=== PATIENT | female | born 2000 | race Caucasian/White ===

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

== ENCOUNTER 2020-01-04 21:25 | Observation (INO) | payer OTHER ==
[~2020-01-04] VITALS: Ht 160 cm; Wt 62.6 kg
[2020-01-04 22:44] VITALS: BP 117/56
[2020-01-05 00:02] LABS: APPEARANCE,URINE CLEAR (CLEAR); BILIRUBIN,URINE NEGATIVE (NEGATIVE); BLOOD, URINE NEGATIVE (NEGATIVE); COLOR,URINE YELLOW (YELLOW); LEUKOCYTE ESTERASE ,URINE NEGATIVE (NEGATIVE); NITRITE, URINE NEGATIVE (NEGATIVE); PH,URINE 6.5 (5.0-9.0); UGLUCOSE NEGATIVE (NEGATIVE)
== END 2020-01-04 23:45 | disposition home or self-care (01) ==
LOC: MLD 21:25
PROVIDERS: ADMIT Obstetrics & Gynecology; ATTEND Obstetrics & Gynecology
DX: O62.9 Abnormality of forces of labor, unspecified (principal); Z3A.38 38 weeks gestation of pregnancy
CPT/HCPCS: 76817; 81003; 87086; G0378; Q0092

== ENCOUNTER 2020-03-10 21:54 | Inpatient (IN) | payer OTHER ==
[~2020-03-10] VITALS: Ht 162.6 cm; Wt 74.8 kg
[2020-03-10] MEDS ORDERED: LACTATED RINGERS 1,000 ML IV SCH (22:17)
[2020-03-10] MEDS ORDERED: PROMETHAZINE 25 MG/ML VIAL IVP PRN (22:20)
[2020-03-10] MEDS ORDERED: fentaNYL citrate 0.05 MG/ML VIAL IVP PRN (22:20)
[2020-03-10] MEDS ORDERED: OXYTOCIN 20 UNITS/LR PREMIX 1,000 ML IV SCH (22:20)
[2020-03-10] MEDS ORDERED: ONDANSETRON 4 MG/2 ML VIAL IVP PRN (22:35)
[2020-03-10] MEDS ORDERED: MORPHINE SULFATE 5 MG/ML VIAL IVP PRN (22:35)
[2020-03-10] MEDS ORDERED: AMPICILLIN 2,000 MG in NACL 0.9% 100 ML IV ONE (22:35)
[2020-03-10] MEDS ORDERED: AMPICILLIN 2,000 MG VIAL ONE (22:42)
[2020-03-10 22:48] LABS: BASOPHILS # (AUTO) 0.1 K/uL (0.00-0.22); BASOPHILS % (AUTO) 0.5 % (0.0-2.0); EOSINOPHILS # (AUTO) 0.1 K/uL (0-0.4); EOSINOPHILS % (AUTO) 0.6 % (0.0-4.0); HEMATOCRIT 36.5 % (36-48); HEMOGLOBIN 12.1 g/dL (12.0-16.0); LYMPHOCYTES # (AUTO) 2.6 K/uL (2.5-16.5); MEAN CORPUSCULAR HEMOGLOBIN 30 pg (27-31); MEAN CORPUSCULAR HGB CONC 33 g/dL (33-37); MEAN CORPUSCULAR VOLUME 88.9 fL (80-94); MONOCYTES # (AUTO) 0.8 K/uL (0.8-1.0); MONOCYTES % (AUTO) 6.2 % (1.7-9.3); NEUTROPHILS # (AUTO) 9.3 K/uL (1.8-7.7); NEUTROPHILS % (AUTO) 72.7 % (42.2-75.2); PLATELET COUNT (AUTO) 253 K/uL (140-450); RED BLOOD CELL COUNT(AUTO) 4.11 MIL/uL (4.20-5.40); WHITE BLOOD COUNT (AUTO) 12.8 K/uL (4.5-11.0)
[2020-03-10 22:50] LABS: APPEARANCE,URINE CLOUDY (CLEAR); BILIRUBIN,URINE NEGATIVE (NEGATIVE); BLOOD, URINE NEGATIVE (NEGATIVE); COLOR,URINE YELLOW (YELLOW); LEUKOCYTE ESTERASE ,URINE NEGATIVE (NEGATIVE); NITRITE, URINE NEGATIVE (NEGATIVE); UGLUCOSE NEGATIVE (NEGATIVE)
[2020-03-10 23:13] LABS: ALBUMIN 2.7 g/dL (3.4-5.0); CARBON DIOXIDE 20.5 mmol/L (21-32); CREATININE 0.9 mg/dL (0.6-1.3); POTASSIUM 3.5 mmol/L (3.5-5.1); TOTAL BILIRUBIN 0.2 mg/dL (0.0-1.0)
[2020-03-11] MEDS ORDERED: AMPICILLIN 1,000 MG in NACL 0.9% 50 ML IV SCH ×2
[2020-03-11] MEDS: MISOPROSTOL 25 MCG TAB VG PRN ×2 (00:31→10:43)
[2020-03-11] MEDS ORDERED: AMPICILLIN 1,000 MG VIAL ONE (04:20)
--- NOTE | 2020-03-11 09:13 | NUR ---
PATIENT HAS BEEN SCREENED AND CATEGORIZED LOW NUTRITION RISK. PATIENT WILL BE SEEN WITHIN 7 DAYS OF ADMISSION. 03/17/[address]
[2020-03-11] MEDS ORDERED: ROPIVACAINE 0.2%/NS PREMIX 200 ML EPI ONE (09:38)
[2020-03-11] MEDS ORDERED: HYDROmorphone PFS 2 MG/ML SYR ONE (10:24)
[2020-03-11] MEDS ORDERED: MIDAZOLAM 2 MG/2 ML VIAL ONE (10:24)
[2020-03-11] MEDS ORDERED: OXYTOCIN 10 UNITS/ML VIAL IM PRN (20:20)
[2020-03-11] MEDS ORDERED: BENZOCAINE/MENTHOL 20%-0.5% 60 GM CAN TP PRN (20:20)
[2020-03-11] MEDS ORDERED: MEASLES, MUMPS, AND RUBELLA 1 VIAL SQVAC PRN (20:20)
[2020-03-11] MEDS ORDERED: DOCUSATE SODIUM 100 MG GELCAP PO PRN (20:20)
[2020-03-11] MEDS ORDERED: METHYLERGONOVINE 0.2 MG/ML AMP IM PRN (20:20)
[2020-03-11] MEDS ORDERED: bisacodyL 5 MG TABEC PO PRN (20:20)
[2020-03-11] MEDS ORDERED: METHYLERGONOVINE 0.2 MG TAB PO PRN (20:20)
[2020-03-11] MEDS ORDERED: SIMETHICONE 80 MG TAB.CHEW PO PRN (20:20)
[2020-03-11] MEDS ORDERED: IBUPROFEN 600 MG TAB PO PRN ×2 (20:20)
[2020-03-12] MEDS: IBUPROFEN 800 MG TAB PO PRN ×3 (03:15→22:22)
[2020-03-12 08:22] LABS: HEMATOCRIT 36.5 % (36-48)
[2020-03-12] MEDS: POLYETHYLENE GLYCOL 17 GM/PKT PO SCH ×2 (09:10→21:00)
[2020-03-13] MEDS: POLYETHYLENE GLYCOL 17 GM/PKT PO SCH (09:19)
[2020-03-13] MEDS: IBUPROFEN 800 MG TAB PO PRN (10:32)
== END 2020-03-13 12:42 | disposition home or self-care (01) | DRG 560 ==
LOC: MFCC 21:54
PROVIDERS: ADMIT Obstetrics & Gynecology; ATTEND Obstetrics & Gynecology
PROC: 10E0XZZ Delivery of Products of Conception, External Approach (ICD-10-PCS; principal; 2020-03-11)
PROC: 0HQ9XZZ Repair Perineum Skin, External Approach (ICD-10-PCS; 2020-03-11)
PROC: 3E0234Z Introduction of Serum, Toxoid and Vaccine into Muscle, Percutaneous Approach (ICD-10-PCS; 2020-03-11)
PROC: 3E0134Z Introduction of Serum, Toxoid and Vaccine into Subcutaneous Tissue, Percutaneous Approach (ICD-10-PCS; 2020-03-11)
PROC: 3E0R3BZ Introduction of Anesthetic Agent into Spinal Canal, Percutaneous Approach (ICD-10-PCS; 2020-03-11)
PROC: 00HU33Z Insertion of Infusion Device into Spinal Canal, Percutaneous Approach (ICD-10-PCS; 2020-03-11)
PROC: 3E033VJ Introduction of Other Hormone into Peripheral Vein, Percutaneous Approach (ICD-10-PCS; 2020-03-11)
DX: O70.0 First degree perineal laceration during delivery (principal); O36.5930 Maternal care for other known or suspected poor fetal growth, third trimester, not applicable or unspecified; Z3A.38 38 weeks gestation of pregnancy; Z37.0 Single live birth; Z20.828 Contact with and (suspected) exposure to other viral communicable diseases; Z23 Encounter for immunization; Z83.3 Family history of diabetes mellitus
CPT/HCPCS: 31500; 36415; 51702; 59200; 59409; 76815; 80053; 81003; 85018; 85025; 86592; 86886; 86900; 86901; 90715; 96365; 96368; 99291; J0290; J1170; J2250; J2590; J2795; J7120; Q0092; U0003-CS